=== PATIENT | male | born 1985 ===

== ENCOUNTER 2019-05-25 02:29 | Emergency (ER) | payer OTHER ==
--- NOTE | 2019-05-25 02:57 | ED ---
HPI Chest Pain - HPI Summary HPI Summary: 33 year old M arriving via private car complains of persistent mid sternal chest pain radiating to his epigastrium and slightly to left side that started at 23:30 yesterday 05/24. Was unable to sleep. Similar episode happened last week for which he took Pepto-Bismol with relief. Tried taking Pepto-Bismol prior to arrival with no relief. No shortness of breath, nausea, diaphoresis. Symptoms rated 6/10 in severity. Symptoms aggravated by nothing. Symptoms alleviated by nothing. Medications reviewed. Hx chronic back pain. No cardiac hx. Allergies reviewed. No surgical hx. Patient states that his father had similar symptoms and had to have surgery but he doesn't know for what. - History of Current Complaint Chief Complaint: EDChestPainROMI Time Seen by Provider: 05/25/19 02:32 Hx Obtained From: Patient Onset/Duration: Started Hours Ago - 3, Still Present Timing: Constant Current Severity: Moderate Pain Intensity: 6 Pain Scale Used: 0-10 Numeric Chest Pain Location: Mid Sternal Chest Pain Radiates: Yes Chest Pain Radiates To:: Epigastric, Other - left side Aggravating Factor(s): Nothing Alleviating Factor(s): Nothing - Allergy/Home Medications Allergies/Adverse Reactions: Allergies Allergy/AdvReac Type Severity Reaction Status Date / Time No Known Allergies Allergy Verified 05/25/19 03:51 PMH/Surg Hx/FS Hx/Imm Hx Infectious Disease History: Yes Infectious Disease History: Denies: Traveled Outside the [place] in Last 30 Days Review of Systems Negative: Skin Diaphoresis Positive: Chest Pain Negative: Shortness Of Breath Negative: Nausea All Other Systems Reviewed And Are Negative: Yes Physical Exam - Summary Physical Exam Summary: General: Well-developed, Well-nourished MALE. No acute distress. HEENT: Normocephalic, Atraumatic. Eyes: Conjuctiva normal, PERRL. Oropharynx: Clear, mucous membranes moist, (-) exudates. Neck: Soft, FROM, (-) lymphadenopathy, (-) thyromegaly, (-) JVD. Cardiovascular: Normal sinus rhythm, (-) murmur. Lungs: Clear to auscultation bilaterally (-) wheezes, (-) rales, (-) rhonchi. Chest: Mild tenderness along the left sternal border Abdomen: Soft, non-tender, non-distended, (-) organomegaly, normal bowel sounds. Back: (-) CVA tenderness Extremities: No edema. Skin: Warm, dry, (-) rash. Neuro: Alert and oriented x3, no focal deficits. Psychiatric: Mood normal, affect normal. Triage Information Reviewed: Yes Vital Signs On Initial Exam: Initial Vitals Temp Pulse Resp BP Pulse Ox 98 F 78 15 139/93 97 05/25/19 02:46 05/25/19 02:46 05/25/19 02:46 05/25/19 02:46 05/25/19 02:46 Vital Signs Reviewed: Yes Procedures - Sedation Patient Received Moderate/Deep Sedation with Procedure: No Diagnostics - Vital Signs Vital Signs Temp Pulse Resp BP Pulse Ox 05/25/19 02:46 98 F 78 15 139/93 97 - Laboratory Result Diagrams: 05/25/19 03:01 05/25/19 03:01 Lab Statement: Any lab studies that have been ordered have been reviewed, and results considered in the medical decision making process. - Radiology CXR Radiology Interpretation Completed By: ED Physician Summary of Radiographic Findings: No infiltrate. No pleural effusion. PENDING OFFICIAL REPORT. - EKG 0234 Cardiac Rate: NL - 75 BPM EKG Rhythm: Sinus Rhythm Summary of EKG Findings: EKG at 0234 reveals normal sinus rhythm with rate of 75 BPM, no acute changes, no ischemic changes. This EKG was reviewed and interpreted by Dr. Leung. Re-Evaluation - Re-Evaluation First Eval Re-Evaluation Time: 03:36 Comment: troponin 0.01. will try GI cocktail Second Eval Re-Evaluation Time: 04:29 Comment: I have discussed results with the patient and symptoms have resolved. Discussed symptoms that warrant immediate return to ED. Chest Pain Course/Dx - Course Course Of Treatment: 33-year-old male presents from home with epigastric and chest pain. Interfering with his ability to sleep. Describes it as a burning that goes up into his midsternal area. No shortness of breath, nausea, diaphoresis. No significant risk factors for heart disease. Patient tried Pepto-Bismol without relief. Workup is essentially negative. Patient given GI cocktail with moderate improvement in his symptoms. discharged to home on prilosec. follow up with pcp. follow up sooner for any worsening symptoms - Diagnoses Provider Diagnoses: Epigastric pain Discharge ED - Sign-Out/Discharge Documenting (check all that apply): Patient Departure - Discharge Plan Condition: Stable Disposition: HOME Prescriptions: Omeprazole 20 mg PO DAILY 60 Days #60 capsule. Patient Education Materials: Epigastric Pain (ED) Referrals: [facility] [address] [Outside] - 3 Days Additional Instructions: Follow up with [facility] in 3 days. Return to the Emergency Department for new or worsening symptoms. - Billing Disposition and Condition Condition: STABLE Disposition: Home - Attestation Statements Document Initiated by Scribe: Yes Documenting Scribe: Shanti Hilton Provider For Whom Scribe is Documenting (Include Credential): Sandhya Leung MD Scribe Attestation: Shanti Johns, scribed for Sandhya Leung MD on 05/25/19 at 0542. Scribe Documentation Reviewed: Yes Provider Attestation: The documentation as recorded by the scribeShanti accurately reflects the service I personally performed and the decisions made by me, Sandhya Leung MD Status of Scribe Document: Viewed
[2019-05-25 03:09] LABS: Hematocrit 38 % (42-52); Hemoglobin 12.8 g/dL (14.0-18.0); Mean Corpuscular HGB Conc 34 g/dL (31-36); Mean Corpuscular Hemoglobin 27 pg (27-31); Mean Corpuscular Volume 81 fL (80-94); Mean Platelet Volume 8.3 fL (7.4-10.4); Platelet Count 207 10^3/uL (150-450); Red Blood Count 4.71 10^6 /uL (4.18-5.48); Red Cell Distribution Width 15 % (10-15); White Blood Count 8.7 10^3/uL (3.5-10.8)
[2019-05-25 03:12] LABS: INR 1.08 (0.82-1.09)
[2019-05-25 03:24] LABS: Albumin 4.2 g/dL (3.2-5.2); Albumin/Globulin Ratio 1.3 (1-3); BUN/Creatinine Ratio 18.8 (8-20); Calcium 9.5 mg/dL (8.6-10.3); EGFR African American 134.7 (>60); EGFR Non-African American 111.3 (>60); Globulin 3.2 g/dL (2-4); Potassium 3.9 mmol/L (3.5-5.0); Total Bilirubin 0.4 mg/dL (0.2-1.0); Total Protein 7.4 g/dL (6.4-8.9)
[2019-05-25 03:26] LABS: Troponin I 0.01 ng/mL (<0.03)
[2019-05-25] MEDS ORDERED: Al Hydrox/Mg Hydrox/Simet LIQ* 30 ML UDC PO ONE (03:35)
[2019-05-25] MEDS ORDERED: Lidocaine 2% VISCOUS* 15 ML UDC PO ONE (03:35)
[2019-05-25 03:58] LABS: ABS Eosinophils 0.3 10^3/ul (0-0.6); ABS Lymphocytes 3.4 10^3/ul (1.0-4.8); Eosinophil % 3.5 %; Lymphocyte % 39.2 %
[2019-05-25] MEDS ORDERED: Pantoprazole TAB * 40 MG TAB PO ONE (04:44)
[2019-05-25 05:32] VITALS: BP 121/92
== END 2019-05-25 04:47 | disposition home or self-care (01) ==
LOC: ED 02:29
DX: R10.13 Epigastric pain (principal)
CPT/HCPCS: 36415; 71045; 80053; 83605; 83880; 84484; 85025; 85610; 93005; 99283; A9270-GY